=== PATIENT | female | born 1935 | race Caucasian/White ===

== ENCOUNTER 2018-09-22 13:23 | Emergency (ER) | payer OTHER ==
[~2018-09-22] VITALS: Ht 157.5 cm; Wt 69.4 kg
[~2018-09-22 13:23] MED LIST: CEFADROXIL500 MG PO; EVISTA60 MG PO; INTEGRA PLUS C1 EACH PO; METROPOLOL PO; NEURONTIN300 MG PO; PEPCID40 MG PO; PERCOCET 10-3251 TAB PO; XARELTO10 MG PO; ZOCOR20 MG PO
== END 2018-09-22 22:21 | disposition home or self-care (01) ==
LOC: ER 13:23
DX: K29.70 Gastritis, unspecified, without bleeding (principal); R07.89 Other chest pain; R11.2 Nausea with vomiting, unspecified